=== PATIENT | female | born 1970 | race Caucasian/White ===

== ENCOUNTER 2018-06-05 10:00 | Outpatient (RCR) | payer OTHER | END 2018-06-12 | LOC: OT 10:00 | PROVIDERS: ATTEND Specialist | DX: S52.122A Displaced fracture of head of left radius, initial encounter for closed fracture (principal) ==

== ENCOUNTER 2019-12-10 21:46 | Inpatient (IN) | payer OTHER ==
[~2019-12-10] VITALS: Ht 167.6 cm; Wt 78.1 kg
[2019-12-10] MEDS ORDERED: SODIUM CHLORIDE 0.9% 1000ML 1,000 ML IV STA ×2 (22:22)
[2019-12-10] MEDS ORDERED: SODIUM CHLORIDE 0.9% 1000ML 1,000 ML ONE (22:29)
[2019-12-10 22:52] LABS: BASOPHILS # (AUTO) 0.1 (0.0-0.1); BASOPHILS % 0.6 % (0.0-1.0); EOSINOPHILS % 0.1 % (0.0-6.0); HEMATOCRIT 50.7 % (34.2-44.1); HEMOGLOBIN 16.7 g/dL (12.0-16.0); LYMPHOCYTES % 9.6 % (18.0-39.1); MEAN CORPUSCULAR HEMOGLOBIN 32.1 pg (28-32); MEAN CORPUSCULAR HGB CONC 32.9 g/dL (31-35); MEAN CORPUSCULAR VOLUME 97.3 fL (81-99); MONOCYTES # (AUTO) 0.7 (0.2-0.8); MONOCYTES % 3.4 % (4.4-11.3); NEUTROPHILS # (AUTO) 17.2 (2.1-6.9); NEUTROPHILS % 82.5 % (38.7-80.0); PLATELET COUNT 433 x10e3/uL (140-360); RED BLOOD COUNT 5.21 x10e6/uL (3.6-5.1); RED CELL DISTRIBUTION WIDTH 11.9 % (11.7-14.4)
[2019-12-10 23:21] LABS: LIPASE 10 U/L (8-78)
[2019-12-10 23:23] LABS: ALANINE AMINOTRANSFERASE 35 IU/L (0-55); ALBUMIN 4.7 g/dL (3.5-5.0); ALBUMIN/GLOBULIN RATIO 1.4 (0.8-2.0); ALKALINE PHOSPHATASE 99 IU/L (40-150); BLOOD UREA NITROGEN 21 mg/dL (7-26); BUN/CREATININE RATIO 17 (6-25); CALCIUM 9.5 mg/dL (8.4-10.2); CHLORIDE 100 mmol/L (98-107); CREATININE, SERUM 1.24 mg/dL (0.57-1.11); EST GLOMERULAR FILTRATION RATE 46 ML/MIN (60-); GLUCOSE 195 mg/dL (74-118); POTASSIUM 4.6 mmol/L (3.5-5.1); SODIUM 134 mmol/L (136-145)
[2019-12-10 23:31] LABS: ANION GAP 33.6 mmol/L (8-16); CARBON DIOXIDE < 5 mmol/L (22-29)
[2019-12-10] MEDS: SODIUM CHLORIDE 0.9% 1000ML 1,000 ML IV STA (23:32)
[2019-12-10] MEDS ORDERED: DEXTROSE 5%/0.45% SOD CHL 1,000 ML IV ONE (23:50)
[2019-12-10] MEDS ORDERED: SODIUM CHLORIDE 0.9% 100 ML ONE (23:51)
[2019-12-10] MEDS ORDERED: INSULIN REGULAR, HUMAN 100 UNIT/1 ML 3ML VIAL ONE (23:51)
[2019-12-10] MEDS ORDERED: DEXTROSE 5%/0.45% SOD CHL 1,000 ML IV STA (23:53)
[2019-12-11] VITALS (11 sets, daily range): BP systolic 102–133; BP diastolic 67–88
[2019-12-11] MEDS ORDERED: POTASSIUM CHLORIDE 20MEQ/100ML 200 ML IV PRN
[2019-12-11] MEDS ORDERED: INSULIN REGULAR, HUMAN 3ML VL 1 UNIT in SODIUM CHLORIDE 0.9% 100 ML IV SCH ×2
[2019-12-11] MEDS ORDERED: POTASSIUM CHLORIDE 20MEQ/100ML 100 ML INJ PRN
[2019-12-11] MEDS ORDERED: MAGNESIUM SULF 1GRAM/DEXTROSE 100 ML IV PRN
[2019-12-11] MEDS ORDERED: PANTOPRAZOLE 40 MG 10ML VIAL IV STA (00:25)
[2019-12-11] MEDS ORDERED: ONDANSETRON HCL INJ 2MG/ML 2ML 2 MG/ML VIAL IV STA (00:25)
[2019-12-11] MEDS ORDERED: ONDANSETRON HCL INJ 2MG/ML 2ML 2 MG/ML VIAL IV PRN (00:30)
[2019-12-11 01:47] LABS: ANION GAP 28.7 mmol/L (8-16); CALCIUM 8.4 mg/dL (8.4-10.2); CREATININE, SERUM 1.09 mg/dL (0.57-1.11); POTASSIUM 4.7 mmol/L (3.5-5.1)
[2019-12-11 02:32] LABS: BILIRUBIN,URINE NEGATIVE (NEGATIVE); CLARITY,URINE CLEAR (CLEAR); COLOR,URINE YELLOW (YELLOW); KETONES,URINE 3+ (NEGATIVE); LEUKOCYTE ESTERASE ,URINE NEGATIVE (NEGATIVE); NITRITE,URINE NEGATIVE (NEGATIVE); PROTEIN,URINE DIPSTICK TRACE (NEGATIVE); URINE UROBILINOGEN 0.2 mg/dL (0.2 - 1)
[2019-12-11 02:33] LABS: BACTERIA,URINE MODERATE /HPF; EPITHELIAL CELLS,URINE MODERATE /LPF
[2019-12-11] MEDS ORDERED: LISINOPRIL5 MG PO (03:32)
[2019-12-11] MEDS ORDERED: SYNJARDY XR 121 EACH PO (03:32)
[2019-12-11] MEDS ORDERED: OZEMPIC1 MG/0.75 SQ (03:32)
[2019-12-11 03:37] LABS: BLOOD UREA NITROGEN 20 mg/dL (7-26); BUN/CREATININE RATIO 19 (6-25); CALCIUM 8.1 mg/dL (8.4-10.2); CHLORIDE 110 mmol/L (98-107); CREATININE, SERUM 1.07 mg/dL (0.57-1.11); EST GLOMERULAR FILTRATION RATE 54 ML/MIN (60-); GLUCOSE 214 mg/dL (74-118); POTASSIUM 4.3 mmol/L (3.5-5.1); SODIUM 136 mmol/L (136-145)
[2019-12-11 03:52] LABS: ANION GAP 25.3 mmol/L (8-16); CARBON DIOXIDE < 5 mmol/L (22-29)
[2019-12-11] MEDS ORDERED: SODIUM CHLORIDE 0.9% 1000ML 1,000 ML ONE (04:13)
[2019-12-11] MEDS: SODIUM CHLORIDE 0.9% 1000ML 1,000 ML IV STA (04:15)
[2019-12-11 04:31] LABS: ABG PH 7.12 (7.31-7.41)
[2019-12-11 04:32] LABS: ABG HCO3 4 mmol/L (23-28); ABG PCO2 11 mmHg (41-51); ABG PO2 119 mmHg (80-105)
[2019-12-11 05:47] LABS: ALANINE AMINOTRANSFERASE 48 IU/L (0-55); ALBUMIN 3.3 g/dL (3.5-5.0); ALBUMIN/GLOBULIN RATIO 1.4 (0.8-2.0); ALKALINE PHOSPHATASE 76 IU/L (40-150); BLOOD UREA NITROGEN 17 mg/dL (7-26); BUN/CREATININE RATIO 18 (6-25); CALCIUM 7.1 mg/dL (8.4-10.2); CHLORIDE 116 mmol/L (98-107); CREATININE, SERUM 0.93 mg/dL (0.57-1.11); EST GLOMERULAR FILTRATION RATE > 60 ML/MIN (60-); GLUCOSE 165 mg/dL (74-118); POTASSIUM 4.1 mmol/L (3.5-5.1); SODIUM 136 mmol/L (136-145)
[2019-12-11 05:51] LABS: ANION GAP 19.1 mmol/L (8-16)
[2019-12-11 05:52] LABS: CARBON DIOXIDE < 5 mmol/L (22-29)
[2019-12-11] MEDS ORDERED: DEXTROSE 5%/0.45% SOD CHL 1,000 ML IV PRN (06:00)
[2019-12-11] MEDS ORDERED: DEXTROSE 5%/0.45% SOD CHL 1,000 ML IV ONE (06:21)
--- OUTSIDE RECORDS SUMMARY | 2019-12-11 07:01 | XMS REPORT ---
Author Author [facility] Address Unknown Phone Unavailable Care Team Providers Care Seating Captain Name Role Phone Unavailable Unavailable Problems This patient has no known problems. Allergies, Adverse Reactions, Alerts This patient has no known allergies or adverse reactions. Medications This patient has no known medications. Results Test Description Test Time Test Comments Text Results Atomic Results Result Comments BREAST ULTRASOUND BILATERAL 2018-10-28 08:06:38 - BREAST ULTRASOUND BILATERALULTRASOUND OF BOTH BREASTS AND BOTH AXILLA: 10/26/2018CLINICAL: Supplemental Screening for Dense Breast. Comparison is made to exams dated 10/26/2018 mammogram, 07/15/2017 ultrasound, 07/15/2017 mammogram, 06/11/2016 ultrasound, and 06/11/2016 mammogram - [facility]. Real-time ultrasound of both breasts and both axilla was performed. No abnormalities were seen sonographically in either breast or either axilla. Clinical breast exam was unremarkable.IMPRESSION: NEGATIVE There is no sonographic evidence of malignancy. Patient has been informed that she has areas of dense breast tissue that could make it difficult to find a small cancer. A screening mammogram and supplemental ultrasound for dense breast tissue is recommended in 1 year.Malgorzata Chavez M.D. dm/:10/28/2018 08:06:38 Sound Recording Technician: Cheryl STINSON, [facility] sent: BIRADS 1-2 Combo FU Letter Ultrasound BI-RADS: 1 Negative SCR MAMM BILATERAL YOLANDA CAD DIGITAL 2018-10-26 15:00:08 - SCR MAMM BILATERAL YOLANDA CAD DIGITALBILATERAL DIGITAL SCREENING MAMMOGRAM 3D/2D WITH CAD: 10/26/2018CLINICAL: Asymptomatic. Digital breast tomosynthesis was performed in addition to routine CC and MLO views. Current mammographic images were evaluated by either a [employer] M-Vu or a [employer] CAD (computer aided detection system). Comparison is made to exams dated 07/15/2017 mammogram, 06/11 mammogram, and 05/11/2015 mammogram - [facility]. The tissue of both breasts is heterogeneously dense. This may lower the sensitivity of mammography. No suspicious mass, architectural distortion, malignant type calcification, or lymph node abnormality detected. IMPRESSION: NEGATIVEUltrasound pending for additional evaluation. There is no mammographic evidence of malignancy. Malgorzata adhikari/penrad:10/26/2018 15:00:08 Entry: - 10/27/2018 09:41:45Imaging Technologist: Yashira Weeks FW, [facility] BI-RADS: 1 Negative
[2019-12-11] MEDS ORDERED: ZOLPIDEM TARTRATE 5 MG TAB PO PRN ×2 (07:15→07:30)
--- NOTE | 2019-12-11 07:18 | NUR ---
H&P cc: DKA HPI: 49yoF, PCP , developed nausea for 2 days, after recently changing medications by her interface control officer. Found to be in DKA with severe acidosis. PMH: DM2 PSHx: none ALlergies; see emr FH/SH; ; no cigs meds; see MAR rOS; no f/c/s/TUCKER/cp/sob/skin rash/back pain/focal limb weakness/confusion/vision changes v/s; revd PE tired appearing anicteric ns1s2 mod bs soft nt nd no e/t skin dry n. affect labs/meds revd A/P: 49yoF DKA- IVF; insulin; UTI- IV abx Metabolic acidosis- IVF and bicarbs; Dehydraiton- IVF Prop: pepcid; scd dipso: cct>35mins Obed Ross MD, PhD.
[2019-12-11] MEDS ORDERED: SODIUM BICARBONATE 8.4% INJ 50 ML SYR IV STA (07:23)
[2019-12-11] MEDS ORDERED: ACETAMINOPHEN 325 MG TAB PO PRN (07:30)
[2019-12-11] MEDS ORDERED: PROMETHAZINE 12.5MG/ NACL 0.9% 12.5 MG/50 ML BAG IV PRN (07:30)
[2019-12-11] MEDS ORDERED: DOCUSATE SODIUM 100 MG CAP PO PRN (07:30)
--- NOTE | 2019-12-11 07:53 | Diagnostic Imaging Report ---
EXAMINATION: CHEST SINGLE (PORTABLE) COMPARISON: None INDICATION: ^DKA ^[id number] ^0700 DISCUSSION: Frontal view of the chest obtained at 0719 hours. HEART AND MEDIASTINUM: The cardiomediastinal silhouette is unremarkable. LINES: None. LUNGS: The lungs are well inflated and clear. No pneumonia or pulmonary edema. PLEURA: No pleural effusion or pneumothorax. BONES AND SOFT TISSUES: No focal osseous lesion. The soft tissues are normal. IMPRESSION: No acute cardiopulmonary disease. Signed by: Dr. Frantz Martell MD on 12/11/2019 7:51 AM
[2019-12-11 08:04] LABS: CHOL/HDL RATIO 3.4 (3.0-3.6)
[2019-12-11 08:22] LABS: BASOPHILS # (AUTO) 0.1 (0.0-0.1); BASOPHILS % 0.3 % (0.0-1.0); HEMATOCRIT 41.7 % (34.2-44.1); HEMOGLOBIN 13.6 g/dL (12.0-16.0); LYMPHOCYTES # (AUTO) 1.6 (1.0-3.2); LYMPHOCYTES % 10.4 % (18.0-39.1); MEAN CORPUSCULAR HEMOGLOBIN 31.4 pg (28-32); MEAN CORPUSCULAR HGB CONC 32.6 g/dL (31-35); MEAN CORPUSCULAR VOLUME 96.3 fL (81-99); MONOCYTES # (AUTO) 1.2 (0.2-0.8); MONOCYTES % 7.4 % (4.4-11.3); NEUTROPHILS # (AUTO) 12.1 (2.1-6.9); NEUTROPHILS % 77.9 % (38.7-80.0); PLATELET COUNT 197 x10e3/uL (140-360); RED BLOOD COUNT 4.33 x10e6/uL (3.6-5.1); RED CELL DISTRIBUTION WIDTH 11.9 % (11.7-14.4)
[2019-12-11] MEDS: FAMOTIDINE 20 MG/2 ML VIAL IV SCH ×2 (08:22→16:54)
[2019-12-11] MEDS: PANTOPRAZOLE 40 MG 10ML VIAL IV SCH (08:22)
[2019-12-11] MEDS: CEFTRIAXONE SOD 1 GM/NS 50 ML 50 ML IV SCH (08:22)
[2019-12-11 08:31] LABS: FREE T4 (FREE THYROXINE) 0.86 ng/dL (0.8-1.8); FREE THYROXINE INDEX 2.1587 (1.4-3.8); THYROID STIMULATING HORMONE 0.49 uIU/mL (0.350-4.940)
[2019-12-11 08:36] LABS: ANION GAP 18.5 mmol/L (8-16); BLOOD UREA NITROGEN 15 mg/dL (7-26); BUN/CREATININE RATIO 16 (6-25); CALCIUM 7.6 mg/dL (8.4-10.2); CHLORIDE 114 mmol/L (98-107); CREATININE, SERUM 0.92 mg/dL (0.57-1.11); EST GLOMERULAR FILTRATION RATE > 60 ML/MIN (60-); GLUCOSE 133 mg/dL (74-118); POTASSIUM 4.5 mmol/L (3.5-5.1); SODIUM 134 mmol/L (136-145)
[2019-12-11 08:41] LABS: CARBON DIOXIDE 6 mmol/L (22-29)
--- NOTE | 2019-12-11 11:33 | NUR ---
BG level 117, increased d5 1/2 ns to 325cc/hr. Patient eating lunch. CBC and BMP drawn and sent to lab.
[2019-12-11 12:01] LABS: BASOPHILS % 0.2 % (0.0-1.0); HEMATOCRIT 37.4 % (34.2-44.1); HEMOGLOBIN 12.7 g/dL (12.0-16.0); LYMPHOCYTES # (AUTO) 1.5 (1.0-3.2); LYMPHOCYTES % 7.9 % (18.0-39.1); MEAN CORPUSCULAR HEMOGLOBIN 32.1 pg (28-32); MEAN CORPUSCULAR VOLUME 94.4 fL (81-99); MONOCYTES # (AUTO) 2.1 (0.2-0.8); MONOCYTES % 11.6 % (4.4-11.3); NEUTROPHILS # (AUTO) 14.4 (2.1-6.9); NEUTROPHILS % 78.6 % (38.7-80.0); PLATELET COUNT 307 x10e3/uL (140-360); RED BLOOD COUNT 3.96 x10e6/uL (3.6-5.1)
--- NOTE | 2019-12-11 12:05 | Consultation ---
DATE OF CONSULTATION: 12/11/2019 Pulmonary Critical Care Consultation CHIEF COMPLAINT: Nausea, vomiting, and diabetic ketoacidosis. HISTORY OF PRESENT ILLNESS: The patient is a 49-year-old woman. She has a history of diabetes for the past 13 years. She was initially on metformin and glipizide, which was not controlling her diabetes well. She recently went to see a new Office Machine Embossograph Operator, Dr. Ortiz. Dr. Ortiz switched her to Synjardy, first as an injection daily along with semaglutide injection once a week. Over the past several days, the patient has had nausea and vomiting. She has felt malaise. She denies any fever or pain. She came to the emergency department and was found to have a pH is 7.12, bicarb of less than 5, and mildly elevated blood sugar. She was given 3 L of normal saline and started on an insulin drip and D5. PAST SURGICAL HISTORY: Status post cholecystectomy. PAST MEDICAL HISTORY: 1. Diabetes for the past 13 years. 2. Hypertension. 3. No prior history of asthma or pulmonary problems. 4. No prior history of cardiac problems. SOCIAL HISTORY: The patient is not an active smoker. She is not a drinker. FAMILY HISTORY: Her mother does have COPD. ALLERGIES: THE PATIENT HAS NO KNOWN DRUG ALLERGIES. REVIEW OF SYSTEMS: The patient has no fever. She has no headache. She is not having any neck pain. She does not complain of chest pain. There is no difficulty breathing. She does have nausea and vomiting. She has no diarrhea. She does not complain of abdominal pain. There is no leg edema. She has no neurological complaints. PHYSICAL EXAMINATION: VITAL SIGNS: The blood pressure is 127/81 and the heart rate is 121. HEENT: Shows no facial swelling or erythema. CARDIAC: Reveals regular rate and rhythm with normal S1 and S2. LUNGS: Auscultation of lungs was clear breath sounds bilaterally. There is no wheezing. ABDOMEN: Soft and nontender. There is no rebound or guarding. EXTREMITIES: Show no leg edema or calf tenderness. There is no cyanosis or clubbing. SKIN: Shows no rashes. NEUROLOGICAL: Shows no focal abnormalities. LABORATORY DATA: The BUN to creatinine ratio is 17 to 0.93. The carbon dioxide is less than five and the chloride is 116. The BUN to creatinine ratio is 17 to 0.93. The blood glucose is 161. The albumin is 3.3. Urinalysis is significant for 3+ ketones. Glucose is 3+. IMPRESSION: 1. Diabetic ketoacidosis. 2. Leukocytosis. 3. Nausea and vomiting. PLAN: 1. Continue insulin drip along with dextrose until anion gap has resolved. 2. Continue to monitor electrolytes. BUN and creatinine. 3. Continue to give intravenous volume. 4. Antiemetics. 5. Repeat CBC. 6. Await cultures. Washington Brown MD [facility]/MODL /[id number]
[2019-12-11 12:19] LABS: ANION GAP 14.1 mmol/L (8-16); CALCIUM 7.9 mg/dL (8.4-10.2); CREATININE, SERUM 1.01 mg/dL (0.57-1.11); POTASSIUM 3.1 mmol/L (3.5-5.1)
[2019-12-11] MEDS ORDERED: POTASSIUM CHLORIDE 20MEQ/100ML 100 ML IV ONE (13:00)
[2019-12-11] MEDS ORDERED: SODIUM CHLORIDE 0.9% 1000ML 1,000 ML IV ONE (13:00)
[2019-12-11 14:05] LABS: ANION GAP 12.1 mmol/L (8-16); BLOOD UREA NITROGEN 15 mg/dL (7-26); BUN/CREATININE RATIO 16 (6-25); CALCIUM 7.8 mg/dL (8.4-10.2); CARBON DIOXIDE 17 mmol/L (22-29); CHLORIDE 110 mmol/L (98-107); CREATININE, SERUM 0.94 mg/dL (0.57-1.11); EST GLOMERULAR FILTRATION RATE > 60 ML/MIN (60-); GLUCOSE 154 mg/dL (74-118); POTASSIUM 3.1 mmol/L (3.5-5.1); SODIUM 136 mmol/L (136-145)
[2019-12-11] MEDS ORDERED: INSULIN REGULAR, HUMAN 3ML VL 100 UNIT in SODIUM CHLORIDE 0.45% 100 ML 99 ML IV SCH ×2 (14:44)
[2019-12-11] MEDS ORDERED: DEXTROSE 50% SYRINGE 50 ML IV PRN ×2 (14:45→17:30)
[2019-12-11] MEDS: DEXTROSE 5%/0.45% SOD CHL 1,000 ML IV SCH ×2 (15:21→19:18)
[2019-12-11] MEDS ORDERED: INSULIN REGULAR, HUMAN 3ML VL 300 UNIT in SODIUM CHLORIDE 0.45% 100 ML 300 ML IV SCH ×2 (17:27)
[2019-12-11 21:22] LABS: ANION GAP 10.1 mmol/L (8-16); BLOOD UREA NITROGEN 12 mg/dL (7-26); BUN/CREATININE RATIO 14 (6-25); CALCIUM 8.2 mg/dL (8.4-10.2); CARBON DIOXIDE 21 mmol/L (22-29); CHLORIDE 110 mmol/L (98-107); CREATININE, SERUM 0.84 mg/dL (0.57-1.11); EST GLOMERULAR FILTRATION RATE > 60 ML/MIN (60-); GLUCOSE 138 mg/dL (74-118); POTASSIUM 3.1 mmol/L (3.5-5.1); SODIUM 138 mmol/L (136-145)
[2019-12-11 21:35] LABS: CHOL/HDL RATIO 3.4 (3.0-3.6)
[2019-12-11 21:56] LABS: FREE T4 (FREE THYROXINE) 0.89 ng/dL (0.8-1.8); THYROID STIMULATING HORMONE 0.699 uIU/mL (0.350-4.940)
--- NOTE | 2019-12-11 23:21 | Consultation ---
DATE OF CONSULTATION: 12/11/2019 Endocrine Consultation Thank you very much for referring this patient. Patient of Dr. Ross and Dr. Oakes. HISTORY OF PRESENT ILLNESS: This is a 49-year-old lady, who is referred to me for evaluation of uncontrolled diabetes mellitus and diabetic ketoacidosis. The patient reportedly is a known diabetic for almost 10 years and has been on Glucotrol and metformin in the past. She was seen by an corporate law specialist recently, who started her on a combination of Synjardy and Ozempic. After few days, the patient starting having some nausea, vomiting, and last night, the patient went into altered mental status and vomiting and she reported to the emergency room, where the blood sugar was found to be around 195-221, but her anion gap was significantly elevated at 33.6, and carbon dioxide was less than 5. The patient also has history of mild hypertension. No history of any other major medical problems in the past. The patient was started on insulin drip and IV fluids. PHYSICAL EXAMINATION: GENERAL: Today, the patient is alert, awake, little bit apprehensive. VITAL SIGNS: Her heart rate is around 78, blood pressure is 130/80 mmHg. HEENT: Essentially unremarkable. NECK: Thyroid is palpable. Clinically, she is near euthyroid. CHEST: Bilateral vesicular breathing. No rales. CARDIOVASCULAR: First and second heart sounds. There is no third or fourth heart sounds. Ejection systolic murmur of grade 2/6. 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 CLINICAL IMPRESSION: Diabetes mellitus type 2, uncontrolled with complications, diabetic ketoacidosis, partly related to Synjardy, which is SGLT2 inhibitor. PLAN: At this time is to continue the insulin drip and IV fluids. Monitor her blood sugars closely and start her on the IV fluids. Thank you again for referring this patient. I will follow this patient with you. MD ADAM Alejandre/MODL /[id number]
[2019-12-12] VITALS (22 sets, daily range): BP systolic 94–137; BP diastolic 70–89
[2019-12-12] MEDS ORDERED: POTASSIUM CHLORIDE 10MEQ EA PO ONE (00:15)
[2019-12-12] MEDS: DEXTROSE 5%/0.45% SOD CHL 1,000 ML IV SCH ×3 (03:28→21:38)
[2019-12-12 05:42] LABS: ANION GAP 10.5 mmol/L (8-16); BLOOD UREA NITROGEN 7 mg/dL (7-26); BUN/CREATININE RATIO 10 (6-25); CALCIUM 8.4 mg/dL (8.4-10.2); CARBON DIOXIDE 22 mmol/L (22-29); CHLORIDE 111 mmol/L (98-107); EST GLOMERULAR FILTRATION RATE > 60 ML/MIN (60-); GLUCOSE 115 mg/dL (74-118); POTASSIUM 3.5 mmol/L (3.5-5.1); SODIUM 140 mmol/L (136-145)
[2019-12-12] MEDS: FAMOTIDINE 20 MG/2 ML VIAL IV SCH ×2 (07:43→16:36)
[2019-12-12] MEDS: PANTOPRAZOLE 40 MG 10ML VIAL IV SCH (07:43)
[2019-12-12] MEDS: CEFTRIAXONE SOD 1 GM/NS 50 ML 50 ML IV SCH (07:43)
[2019-12-12] MEDS ORDERED: INSULIN GLARGINE 100 UNITS/ML VIAL SQ ONE (07:45)
--- NOTE | 2019-12-12 10:19 | Progress Note ---
DATE: 12/12/2019 SUBJECTIVE: The patient is improved. She has less malaise. She does note some heartburn and indigestion. She received Protonix and Pepcid early this morning. OBJECTIVE: VITAL SIGNS: The blood pressure is 111/77 and saturation 100%. HEENT: Shows no facial swelling or erythema. CARDIAC: Reveals regular rate and rhythm with normal S1, S2. LUNGS: Auscultation of lungs reveals clear breath sounds bilaterally. There is no wheezing. ABDOMEN: Soft, nontender. There is no rebound or guarding. EXTREMITIES: Show no leg edema or calf tenderness. SKIN: Shows no rashes. LABORATORY DATA: BUN-creatinine ratio is 7-0.7. The potassium is 3.5 and the blood sugar is 105. White blood cell count is 18.3, hemoglobin is 12.7, and the platelet count is 307. IMPRESSION: 1. Diabetic ketoacidosis. 2. Leukocytosis. 3. Gastroesophageal reflux. 4. Nausea and vomiting. PLAN: 1. Switch the patient from insulin drip to subcu insulin. 2. Continue to follow recommendations from Endocrinology. 3. Continue Protonix and Pepcid. 4. Repeat CBC in the morning. 5. Transfer out of Intensive Care Unit. Washington Brown MD [facility]/MODL /[id number]
[2019-12-12] MEDS: INSULIN LISPRO 100 UNIT/1 ML 3ML VIAL SQ SCH ×5 (15:42→22:43)
[2019-12-12] MEDS ORDERED: INSULIN GLARGINE 100 UNITS/ML VIAL SQ SCH (21:00)
[2019-12-13 03:58] VITALS: BP 103/65
[2019-12-13 05:28] LABS: BASOPHILS % 0.6 % (0.0-1.0); EOSINOPHILS # (AUTO) 0.1 (0.0-0.4); EOSINOPHILS % 2.3 % (0.0-6.0); HEMATOCRIT 31.7 % (34.2-44.1); HEMOGLOBIN 10.5 g/dL (12.0-16.0); LYMPHOCYTES % 38.2 % (18.0-39.1); MEAN CORPUSCULAR HEMOGLOBIN 31.3 pg (28-32); MEAN CORPUSCULAR HGB CONC 33.1 g/dL (31-35); MEAN CORPUSCULAR VOLUME 94.6 fL (81-99); MONOCYTES # (AUTO) 0.5 (0.2-0.8); MONOCYTES % 9.4 % (4.4-11.3); NEUTROPHILS # (AUTO) 2.5 (2.1-6.9); NEUTROPHILS % 49.1 % (38.7-80.0); PLATELET COUNT 223 x10e3/uL (140-360); RED BLOOD COUNT 3.35 x10e6/uL (3.6-5.1); RED CELL DISTRIBUTION WIDTH 12.1 % (11.7-14.4)
[2019-12-13 06:00] LABS: MAGNESIUM 1.7 MG/DL (1.3-2.1)
[2019-12-13 07:00] VITALS: BP 114/71
[2019-12-13 07:19] LABS: ALANINE AMINOTRANSFERASE 26 IU/L (0-55); ALBUMIN 2.8 g/dL (3.5-5.0); ALBUMIN/GLOBULIN RATIO 1.4 (0.8-2.0); ALKALINE PHOSPHATASE 61 IU/L (40-150); ANION GAP 9.1 mmol/L (8-16); BLOOD UREA NITROGEN 5 mg/dL (7-26); BUN/CREATININE RATIO 9 (6-25); CALCIUM 8.1 mg/dL (8.4-10.2); CARBON DIOXIDE 24 mmol/L (22-29); CHLORIDE 110 mmol/L (98-107); CREATININE, SERUM 0.55 mg/dL (0.57-1.11); EST GLOMERULAR FILTRATION RATE > 60 ML/MIN (60-); GLUCOSE 137 mg/dL (74-118); POTASSIUM 3.1 mmol/L (3.5-5.1); SODIUM 140 mmol/L (136-145)
[2019-12-13] MEDS: INSULIN LISPRO 100 UNIT/1 ML 3ML VIAL SQ SCH ×4 (07:30→11:39)
[2019-12-13 07:43] VITALS: BP 114/71
[2019-12-13] MEDS: FAMOTIDINE 20 MG/2 ML VIAL IV SCH ×2 (07:52→09:22)
[2019-12-13] MEDS: CEFTRIAXONE SOD 1 GM/NS 50 ML 50 ML IV SCH (07:54)
[2019-12-13] MEDS: PANTOPRAZOLE 40 MG 10ML VIAL IV SCH (07:55)
[2019-12-13] MEDS ORDERED: Insulin Glargine SQ (09:34)
[2019-12-13] MEDS ORDERED: Insulin Lispro SQ (09:34)
[2019-12-13] MEDS ORDERED: POTASSIUM CHLORIDE 20 MEQ TAB CR PO ONE (10:15)
[2019-12-13 11:00] VITALS: BP 132/76
[2019-12-13] MEDS: DEXTROSE 5%/0.45% SOD CHL 1,000 ML IV SCH (11:40)
--- NOTE | 2019-12-13 15:20 | NUR ---
Per Dr. Lopez pt ok to go home if Dr. Ross is ok with discharge. Dr. Ross informed, would like pt to stay until he assess pt. Dr. Ross left prescriptions for lantus, humalog and pen needles. Pt educated on importance of diabetic diet, monitoring blood sugars and administering insulin. RN monitored pt giving herself insulin injection this afternoon, pt administered medication correctly. Pharmacist Wu came and educated pt on discharge medication as well. Pt informed to follow up with Dr. Ross in 10 days at [facility]. Pt discharged at 1450 with to take her home, no s/s of distress at this time.
== END 2019-12-13 15:38 | disposition home or self-care (01) | DRG 639 ==
LOC: ER 21:46 → ERHOLD 12-11 06:59 → ICU 12-11 14:38
PROVIDERS: ADMIT Internal Medicine Critical Care Medicine; ATTEND Internal Medicine Critical Care Medicine
DX: E11.10 Type 2 diabetes mellitus with ketoacidosis without coma (principal); K21.9 Gastro-esophageal reflux disease without esophagitis; D72.829 Elevated white blood cell count, unspecified; T50.995A Adverse effect of other drugs, medicaments and biological substances, initial encounter
CPT/HCPCS: 36415; 36600; 71045; 80048; 80053; 80061; 81001; 81003; 82805; 82948; 83036; 83518; 83690; 83735; 84100; 84436; 84439; 84443; 84479; 85025; 87400; 96372; 99284; J0696; J1815; J1817; J2405; J2550; J3480; J7030; J7050

== ENCOUNTER → 2020-03-07 | Day surgery (SDC) | payer OTHER ==
[2020-03-03 15:54] LABS: BLOOD UREA NITROGEN 16 mg/dL (7-26); BUN/CREATININE RATIO 24 (6-25); CALCIUM 9.7 mg/dL (8.4-10.2); CARBON DIOXIDE 22 mmol/L (22-29); CHLORIDE 105 mmol/L (98-107); CREATININE, SERUM 0.68 mg/dL (0.57-1.11); EST GLOMERULAR FILTRATION RATE > 60 ML/MIN (60-); GLUCOSE 162 mg/dL (74-118); SODIUM 138 mmol/L (136-145)
[~2020-03-07] MED LIST: BASAGLAR K100 UNIT/1 SC; BUPIVACAINE HCL 0.5% INJ 30 ML VIAL INJ ONE; CEFAZOLIN SOD 1 GM/NS 50ML 50 ML IV ONE; HUMALOG100 UNIT/1 SQ; Insulin Glargine SQ; Insulin Lispro SQ; LIDOCAINE HCL 2% LOCAL INJ 5 ML SDV VIAL INJ ONE; LISINOPRIL5 MG PO; MUPIROCIN 2% OINT 22 GM TUBE ONE; ONDANSETRON HCL INJ 2MG/ML 2ML 2 MG/ML VIAL ONE; OZEMPIC1 MG/0.75 SQ; PROPOFOL IV EMULSION 10 MG/ML 20 ML VIAL ONE; SEVOFLURANE INHAL SOLN 250 ML PEN BTL ONE; SYNJARDY XR 121 EACH PO
[2020-03-07 08:25] VITALS: BP 120/74
--- NOTE | 2020-03-07 18:52 | Operative Report ---
DATE OF PROCEDURE: 03/07/2020 SURGEON: Orville Moore MD PREOPERATIVE DIAGNOSIS: Stenosing tenosynovitis of right index finger. POSTOPERATIVE DIAGNOSIS: Stenosing tenosynovitis of right index finger. OPERATION PERFORMED: Tenovaginotomy of right index finger. ANESTHESIA: General. HISTORY: The patient is a 49-year-old female who presents with stenosing tenosynovitis of the right index finger that is recalcitrant to conservative treatment. The risks, benefits, and alternatives of treatment were discussed with the patient and they are prepared to undergo the procedure as outlined. DESCRIPTION OF PROCEDURE: The patient was brought to the operating theater. After the induction of adequate general/regional anesthesia, the patient was prepped and draped in a supine position. A time out was performed by the entire operating room team. An oblique incision was marked out over the A1 arlin of the right index finger. The upper extremity was exsanguinated, and a tourniquet was inflated to a pressure of 250 mmHg. The incision was made through the skin and subcutaneous tissues. All venous tributaries were controlled with bipolar cautery. The incision was deepened through the palmar tissues. The neurovascular bundles on the radial and ulnar sides of the flexor tendon sheath were identified and retracted away from the flexor tendon sheath and preserved. The A1 arlin of the affected finger was identified and incised longitudinally, taking care to protect and preserve the flexor tendons within the sheath. After the complete length of the arlin had been transected, the tendons were placed in a range of motion. There was noted to be good motion without any locking. The wound was then copiously irrigated with bacteriostatic saline and closed with 5-0 nylon in an interrupted horizontal mattress fashion. A Marcaine field block was performed at the operative site. The tourniquet was deflated. All the fingers pinked up nicely. A sterile bulky conforming bandage was applied to the hand, and the patient was returned to the recovery room in satisfactory condition and was discharged with a postoperative instruction sheet as well as a followup appointment. Orville Moore MD [facility]/MODL /[id number]
== END | disposition home or self-care (01) ==
LOC: OR 05:22 → EDSTATUS 07:00
PROVIDERS: ATTEND Plastic Surgery
DX: M65.321 Trigger finger, right index finger (principal); E11.9 Type 2 diabetes mellitus without complications; F41.9 Anxiety disorder, unspecified; Z01.810 Encounter for preprocedural cardiovascular examination; Z01.812 Encounter for preprocedural laboratory examination; Z11.59 Encounter for screening for other viral diseases; Z79.4 Long term (current) use of insulin
CPT/HCPCS: 26055; 36415 ×2; 80048; 82948; 87635; 93005; J0690; J2001; J2405; J2704

== ENCOUNTER → 2020-09-12 | Day surgery (SDC) | payer OTHER ==
[2020-09-08 11:31] LABS: ANION GAP 13.9 mmol/L (8-16); BLOOD UREA NITROGEN 9 mg/dL (7-26); BUN/CREATININE RATIO 13 (6-25); CALCIUM 8.6 mg/dL (8.4-10.2); CARBON DIOXIDE 22 mmol/L (22-29); CHLORIDE 107 mmol/L (98-107); CREATININE, SERUM 0.71 mg/dL (0.57-1.11); EST GLOMERULAR FILTRATION RATE > 60 ML/MIN (60-); GLUCOSE 153 mg/dL (74-118); POTASSIUM 3.9 mmol/L (3.5-5.1); SODIUM 139 mmol/L (136-145)
[~2020-09-12] MED LIST changes: +BUPIVACAINE HCL 0.5% 10ML MPF VIAL INJ ONE; -BUPIVACAINE HCL 0.5% INJ 30 ML VIAL INJ ONE; +DEXAMETHASONE SOD PHOS INJ 4 MG/ML VIAL ONE; +FENTANYL CITRATE/PF 100MCG/2 ML INJ ONE; +HUMALOG KWIKPEN SQ; +JARDIANCE10 MG; +KETOROLAC TROMETHAMINE 30 MG/ML VIAL ONE; +MIDAZOLAM HCL 2 MG/2 ML VIAL ONE
[2020-09-12 08:20] VITALS: BP 132/59
== END | disposition home or self-care (01) ==
LOC: OR 05:19
PROVIDERS: ATTEND Plastic Surgery
DX: M65.341 Trigger finger, right ring finger (principal); E11.9 Type 2 diabetes mellitus without complications; Z01.810 Encounter for preprocedural cardiovascular examination; Z01.812 Encounter for preprocedural laboratory examination; Z20.828 Contact with and (suspected) exposure to other viral communicable diseases; Z79.4 Long term (current) use of insulin
CPT/HCPCS: 26055; 36415 ×2; 80048; 82948; 93005; J0690; J1100; J1885; J2001; J2250; J2405; J2704; J3010; U0002